=== PATIENT | male | born 1970 | race Caucasian/White ===

== ENCOUNTER 2017-01-09 15:07 | Emergency (ER) | payer BC ==
[~2017-01-09] VITALS: Ht 180.3 cm; Wt 86.2 kg
[~2017-01-09 15:07] MED LIST: KETO10 PO; LORTA5 PO; PERC5TAB12 PO; TAMS0.4C67 PO; ZOFR4TAB3 SL
[2017-01-09 15:15] VITALS: BP 116/83; PULSE 93; RESP 18; TEMP 98.7; O2SAT 97
[2017-01-09] MEDS ORDERED: ONDANSETRON HCL 4 MG/2 ML VIAL IVP ONE (15:45)
[2017-01-09] MEDS ORDERED: SODIUM CHLOR 0.9% 1000 ML INJ 1,000 ML IV ONE ×2 (15:45)
[2017-01-09] MEDS ORDERED: KETOROLAC TROMETHAMINE 30 MG/ML (IVP) VIAL IV PUSH ONE (16:00)
--- NOTE | 2017-01-09 16:08 | PD ---
HPI Chief Complaint: GI Complaint Time Seen by Provider: 15:27 Travel History International Travel<30 days: No Contact w/Intl Traveler<30days: No Traveled to known affect area: No History of Present Illness HPI This patient complains of nausea and vomiting diarrhea. Duration 10 hours. Started this morning. Severity is moderate. He's had 7 or 8 episodes of both vomiting and diarrhea. No blood in either. No documented fever. Symptoms have no alleviating factors. No ill contacts. PFSH Past Medical History Diminished Hearing: No Kidney Stones: Yes Musculoskeletal: Yes (BACK INJURY FROM 1 1/2 WEEKS AGO) Immunizations Current: Yes Tetanus Vaccination: < 5 Years Influenza Vaccination: No Past Surgical History Surgical History: No Previous Surgery Social History Alcohol Use: No Tobacco Use: No Substance Use: No Allergies-Medications (Allergen,Severity, Reaction): Coded Allergies: No Known Allergies (Verified , 01/09/17) Reported Meds & Prescriptions Reported Meds & Active Scripts Active No Active Prescriptions or Reported Medications Review of Systems General / Constitutional: No: Fever Eyes: No: Visual changes HENT: No: Headaches Cardiovascular: No: Chest Pain or Discomfort Respiratory: No: Shortness of Breath Gastrointestinal: Positive: Nausea, Vomiting, Diarrhea Genitourinary: No: Dysuria Musculoskeletal: No: Pain Skin: No Rash Neurologic: No: Weakness Psychiatric: No: Depression Endocrine: No: Polydipsia Hematologic/Lymphatic: No: Easy Bruising Physical Exam Narrative GENERAL: Well-nourished, well-developed patient in no apparent distress. SKIN: Focused skin assessment reveals no rash and nodules. Skin is Warm and dry. HEAD: Atraumatic. Normocephalic. EYES: Pupils equal and round. No scleral icterus. No injection or drainage. ENT: No nasal bleeding or discharge. Mucous membranes pink and moist. NECK: Trachea midline. No JVD. CARDIOVASCULAR: Regular rate and rhythm. No murmur appreciated. RESPIRATORY: No accessory muscle use. Clear to auscultation. Breath sounds equal bilaterally. GASTROINTESTINAL: Abdomen soft, non-tender, nondistended. Hepatic and splenic margins not palpable. MUSCULOSKELETAL: No obvious deformities. No clubbing. No cyanosis. No edema. NEUROLOGICAL: Awake and alert. No obvious cranial nerve deficits. Motor grossly within normal limits. Normal speech. PSYCHIATRIC: Appropriate mood and affect; insight and judgment normal. Data Data Last Documented VS Vital Signs Date Time Temp Pulse Resp B/P Pulse Ox O2 Delivery O2 Flow Rate FiO2 01/09/17 15:15 98.7 93 18 116/83 97 Orders Ondansetron Inj (Zofran Inj) (01/09/17 15:45) Sodium Chlor 0.9% 1000 Ml Inj (Ns 1000 M (01/09/17 15:45) Sodium Chlor 0.9% 1000 Ml Inj (Ns 1000 M (01/09/17 15:45) Iv Access Insert/Monitor (01/09/17 15:38) Ketorolac Inj (Toradol Inj) (01/09/17 16:00) MDM Medical Decision Making Medical Screen Exam Complete: Yes Emergency Medical Condition: Yes Medical Record Reviewed: Yes Differential Diagnosis Gastritis, food poisoning, ileus Narrative Course I have reviewed the patient's electronic medical record. IV placed Presentation most consistent with acute viral gastroenteritis. No clinical suspicion of invasive bacterial illness. I gave him IV Zofran and IV Toradol I gave him 2 L normal saline IV bolus No objective findings on exam and normal vital signs Zofran prescribed I have recommended clear liquids for 24 hours, then gradually advance as tolerated. Diagnosis Primary Impression: Viral gastroenteritis Additional Impression: Nausea vomiting and diarrhea Additional Instructions: The patient was advised to follow up with their physician and return if they worsen. I have recommended clear liquids for 24 hours, then gradually advance as tolerated. Med/Other Pt SpecificInfo: Prescription(s) given Scripts No Active Prescriptions or Reported Meds Disposition: 01 DISCHARGE HOME Condition: Stable Charlie Cash MD Jan 09, 2017 16:08
[2017-01-09] MEDS ORDERED: ZOFR4TAB3 SL (16:31)
== END 2017-01-09 17:07 | disposition home or self-care (01) ==
LOC: PHED 15:07
DX: A08.4 Viral intestinal infection, unspecified (principal); R11.2 Nausea with vomiting, unspecified; R19.7 Diarrhea, unspecified; Z87.442 Personal history of urinary calculi; Z87.39 Personal history of other diseases of the musculoskeletal system and connective tissue
CPT/HCPCS: 96361; 96374; 96375; 99283; J1885; J2405; J7030